=== PATIENT | male | born 1995 | race Caucasian/White ===

== ENCOUNTER → 2021-09-04 | Outpatient (REF) ==
[2021-09-04 11:11] LABS: RSV AMPLIFICATION NEGATIVE (NEGATIVE)
== END ==
LOC: M EMP 09:49
PROVIDERS: ATTEND Family Medicine
DX: Z11.52 Encounter for screening for COVID-19 (principal)

== ENCOUNTER → 2021-12-30 | Outpatient (REF) | LOC: M LABSMTC 09:14 | PROVIDERS: ATTEND Family Medicine | DX: Z11.52 Encounter for screening for COVID-19 (principal) ==

== ENCOUNTER → 2022-02-20 | Outpatient (REF) ==
[2022-02-20 13:24] LABS: RSV AMPLIFICATION NEGATIVE (NEGATIVE)
== END ==
LOC: M EMP 12:17
PROVIDERS: ATTEND Family Medicine
DX: Z11.52 Encounter for screening for COVID-19 (principal)

== ENCOUNTER 2022-08-05 12:01 | Emergency (ER) | payer BC, OTHER ==
[~2022-08-05] VITALS: Ht 185.4 cm; Wt 115.4 kg
[2022-08-05] MEDS ORDERED: KETOROLAC 60MG 2ML VIAL IM ONE (12:25)
[2022-08-05 14:09] VITALS: BP 147/86
== END 2022-08-05 14:22 | disposition home or self-care (01) ==
LOC: M ED 12:01
DX: R07.89 Other chest pain (principal)
CPT/HCPCS: 36415; 71046; 84484; 85379; 93005; 96372; 99283; J1885

== ENCOUNTER → 2023-03-03 | Outpatient (REF) | LOC: M EMP 11:03 | PROVIDERS: ATTEND Family Medicine | DX: Z11.52 Encounter for screening for COVID-19 (principal) ==

== ENCOUNTER → 2024-06-16 | Outpatient (REF) | LOC: M EMP 09:29 | PROVIDERS: ATTEND Family Medicine | DX: Z11.52 Encounter for screening for COVID-19 (principal) ==